=== PATIENT | female | born 1975 | race African-American/Black ===

== ENCOUNTER 2016-11-07 13:33 | Emergency (ER) | payer MEDICAID, OTHER ==
[~2016-11-07] VITALS: Ht 162.6 cm; Wt 83.0 kg
[~2016-11-07 13:33] MED LIST: ALBU6.7H INH; AMBI5TAB PO; FERR325T PO; GABA100C4 PO; PERC5TAB12 PO; TRAM50TA PO
[2016-11-07 13:36] VITALS: BP 104/68; PULSE 120; RESP 16; TEMP 98; O2SAT 98
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
[2016-11-07] MEDS ORDERED: IBUPROFEN 800 MG TAB PO ONE (14:15)
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
[2016-11-07] MEDS ORDERED: IBUP800T23 PO (14:55)
[2016-11-07] MEDS ORDERED: ACETAMINOPHEN 325 MG TAB PO ONE (15:00)
== END 2016-11-07 15:50 | disposition home or self-care (01) ==
LOC: NEPB 13:33
DX: S90.31XA Contusion of right foot, initial encounter (principal); E78.00 Pure hypercholesterolemia, unspecified; I10 Essential (primary) hypertension; V09.20XA Pedestrian injured in traffic accident involving unspecified motor vehicles, initial encounter; Y93.9 Activity, unspecified; Y92.410 Unspecified street and highway as the place of occurrence of the external cause
CPT/HCPCS: 73630; 99283; E0113